=== PATIENT | male | born 1965 | race Caucasian/White ===

== ENCOUNTER 2016-11-15 23:57 | Emergency (ER) | payer BC, OTHER, SELFPAY ==
[~2016-11-15 23:57] MED LIST: Donnatal Elixir 16.2 MG/5 ML UDCUP ONE
[2016-11-16] MEDS ORDERED: Nitroglycerin 0.4 MG TAB 1 EACH ONE (00:03)
[2016-11-16] MEDS ORDERED: Aspirin 325 MG TAB ONE (00:03)
[2016-11-16] MEDS ORDERED: Lidocaine Viscous Sol 2% 15 ml UD Cup ONE (00:17)
[2016-11-16] MEDS ORDERED: Donnatal Elixir 16.2 MG/5 ML UDCUP ONE (00:17)
[2016-11-16] MEDS ORDERED: Mag-Al Plus 1200 MG/1200 MG/120 MG/30 ML UDCUP ONE (00:17)
[2016-11-16 00:29] LABS: #Basophils 0.1 thou/uL (0.0-0.2); #Eosinphils 0.1 thou/uL (0.0-0.7); #Lymphocytes 2.3 thou/uL (1.20-3.40); #Neutrophils 9.9 thou/uL (1.40-6.50); %Eosinophils 1.1 % (0.0-10.0); %Lymphocytes 16.8 % (21.0-51.0); %Monocytes 7.7 % (0.0-10.0); %Neutrophils 73.5 % (42.0-75.0); Hemoglobin 15.2 g/dL (14.0-18.0); Mean Corpuscular HGB CONC 33.3 g/dL (32.0-36.0); Mean Corpuscular Volume 87.1 fl (80.0-94.0); Mean Platelet Volume 9.9 fL (7.4-10.4); Platelet Count 251 thou/uL (130-400); RBC Distribution Width 12.1 % (11.5-14.5); Red Blood Cell (RBC) Count 5.26 mill/uL (4.70-6.10); White Blood Cell (WBC) Count 13.4 thou/uL (4.8-10.8)
[2016-11-16 00:31] LABS: PTT 28.8 SEC (22.9-36.1)
[2016-11-16 00:46] LABS: ALT (SGPT) 29 U/L (8-55); AST (SGOT) 26 U/L (5-34); Albumin 4.2 g/dL (3.5-5.0); Alkaline Phosphatase 73 U/L (40-150); Anion Gap 16 mmol/L (10-20); BUN (Urea Nitrogen) 16 mg/dL (8.4-25.7); Bilirubin, Total 0.4 mg/dL (0.2-1.2); CK (CPK) 165 U/L (30-200); Calc. Creatinine Clearance 0 mL/min (70-130); Calcium 9.3 mg/dL (7.8-10.44); Carbon Dioxide 21 mmol/L (22-29); Chloride 105 mmol/L (98-107); Estimated GFR-MDRD 71; Globulin 3.5 g/dL (2.4-3.5); Glucose 98 mg/dL (70-105); Potassium 3.8 mmol/L (3.5-5.1); Protein, Total 7.7 g/dL (6.0-8.3); Sodium 138 mmol/L (136-145)
[2016-11-16 00:49] LABS: CKMB 1.8 ng/mL (0-6.6); Troponin I Less than 0.010 ng/mL (< 0.028)
[2016-11-16] MEDS ORDERED: Dicyclomine HCl 20 mg/2 ml Ampule ONE (01:25)
[2016-11-16] MEDS ORDERED: Hyoscyamine Sulfate SL 0.125 mg Tablet ONE ×2 (01:25)
[2016-11-16] MEDS ORDERED: Lidocaine 2% w/Epinephrine 1:200K 20 ML VIAL ONE (02:14)
[2016-11-16] MEDS ORDERED: Diazepam 10 MG/2 ML SYRINGE ONE (02:15)
--- NOTE | 2016-11-16 08:22 | RAD ---
PORTABLE UPRIGHT FRONTAL CHEST RADIOGRAPH: DATE: 11/16/16. COMPARISON: None. HISTORY: Chest pain. FINDINGS: No pneumothorax, pleural fluid, focal consolidation, or alveolar edema. Heart and mediastinal conto urs are unremarkable. IMPRESSION: No acute findings. POS: OFF
== END 2016-11-16 02:56 | disposition home or self-care (01) ==
LOC: MADERS 23:57
DX: K22.4 Dyskinesia of esophagus (principal); I10 Essential (primary) hypertension; F17.220 Nicotine dependence, chewing tobacco, uncomplicated; Z79.899 Other long term (current) drug therapy
CPT/HCPCS: 71010; 80053; 82553; 83735; 83880; 84484; 85025; 85610; 85730; 87081; 87430; 93005; 94760; 96372; 96374; J3360

== ENCOUNTER 2018-06-06 15:46 | Emergency (ER) | payer BC, OTHER ==
[2018-06-06] MEDS ORDERED: Prochlorperazine 10 MG/2 ML VIAL ONE (16:33)
[2018-06-06] MEDS ORDERED: Sodium Chloride 0.9% 1,000 ML ONE ×2 (16:33→17:26)
[2018-06-06] MEDS ORDERED: Ketorolac Tromethamine 30 MG/ML VIAL ONE (17:35)
== END 2018-06-06 18:32 | disposition home or self-care (01) ==
LOC: MADERS 15:46
DX: K52.9 Noninfective gastroenteritis and colitis, unspecified (principal); I10 Essential (primary) hypertension; Z87.891 Personal history of nicotine dependence
CPT/HCPCS: 96361; 96374; 96375; J0780; J1885; J7050

== ENCOUNTER 2018-11-17 10:20 | Emergency (ER) | payer BC, SELFPAY ==
[2018-11-17] MEDS ORDERED: Adacel (T-DAP) 0.5 ML SYRINGE ONE (11:03)
== END 2018-11-17 11:10 | disposition home or self-care (01) ==
LOC: MADERS 10:20
DX: S91.312A Laceration without foreign body, left foot, initial encounter (principal); I10 Essential (primary) hypertension; Z87.891 Personal history of nicotine dependence; W26.9XXA Contact with unspecified sharp object(s), initial encounter
CPT/HCPCS: 90471; 90715

== ENCOUNTER 2019-05-07 18:02 | Emergency (ER) | payer BC | END 2019-05-07 19:25 | disposition left against medical advice (07) | LOC: MADERS 18:02 | DX: Z53.21 Procedure and treatment not carried out due to patient leaving prior to being seen by health care provider (principal) ==

== ENCOUNTER 2020-07-01 14:01 | Outpatient (CLI) | payer BC | END 2020-07-01 14:02 | disposition home or self-care (01) | LOC: MADRAD 14:01 | PROVIDERS: ATTEND Family Medicine | DX: M54.5 Low back pain (principal); M43.16 Spondylolisthesis, lumbar region | CPT/HCPCS: 72100 ==